=== PATIENT | male | born 1955 ===

== ENCOUNTER → 2020-07-24 | Outpatient (CLI) | payer BC ==
[~2020-07-24] MED LIST: ALEVE220 MG PO; CO Q-10400 MG PO; CRESTOR10 MG PO; GLIPIZIDE5 MG PO; GLUCOSAMINE &1 EACH PO; JANUVIA100 MG PO; LOSARTAN POTAS100 MG PO; METFORMIN HCL500 MG PO
== END ==
LOC: DX 14:03 → EDSTATUS 07-29 11:00
PROVIDERS: ATTEND Specialist
DX: Z01.818 Encounter for other preprocedural examination (principal); M75.42 Impingement syndrome of left shoulder; M19.012 Primary osteoarthritis, left shoulder; M75.52 Bursitis of left shoulder
CPT/HCPCS: 93005